=== PATIENT | female | born 1960 | race Caucasian/White ===

== ENCOUNTER 2019-08-02 12:00 | Emergency (ER) | payer SELFPAY ==
[2019-08-02 12:15] VITALS: BP 195/84
--- NOTE | 2019-08-02 12:31 | ER Document Report ---
HPI - HPI Time Seen by Provider: 08/02/19 12:23 Notes: 59-year-old female patient with history of hypertension presenting to the emergency department with request for blood pressure medication refill. Patient reports she has been out of her medications for approximately 4 days. She is hypertensive here in the emergency department today but denies any headache, chest pain or shortness of breath. She states she is in the process of getting set up with a primary care physician. Past Medical History - General Information source: Patient - Social History Smoking Status: Never Smoker Frequency of alcohol use: None Drug Abuse: None Family History: Reviewed & Not Pertinent - Past Medical History Cardiac Medical History: Reports: Hx Hypertension Vertical Provider Document - CONSTITUTIONAL Notes: PHYSICAL EXAMINATION: GENERAL: Well-appearing, well-nourished and in no acute distress. HEAD: Atraumatic, normocephalic. EYES: Pupils equal round extraocular movements intact, conjunctiva are normal. ENT: Nares patent NECK: Normal range of motion LUNGS: No respiratory distress Musculoskeletal: Normal range of motion NEUROLOGICAL: Normal speech, normal gait. PSYCH: Normal mood, normal affect. SKIN: Warm, Dry, normal turgor, no rashes or lesions noted. Course - Re-evaluation Re-evalutation: Medications refilled per request. Patient is hypertensive, she will go straight to the pharmacy obtain her medications and take her first dose. Patient given strict ED return precautions. Encourage patient to follow-up with primary care, information given for the [facility]. Patient verbalizes understanding and agreement with this plan. - Vital Signs Vital signs: Temp Pulse Resp BP Pulse Ox 97.7 F 69 16 195/84 H 97 08/02/19 12:11 08/02/19 12:11 08/02/19 12:11 08/02/19 12:11 08/02/19 12:11 Discharge - Discharge Clinical Impression: Encounter for medication refill Condition: Stable Disposition: HOME, SELF-CARE Additional Instructions: Please follow-up with the [facility] as discussed, call them to schedule an appointment. Return to the emergency department for any new or worsening symptoms. Prescriptions: Atorvastatin Calcium [Lipitor 20 mg Tablet] 20 mg PO QHS #30 tablet Amlodipine Besylate [Norvasc 5 mg Tablet] 5 mg PO Q12 #60 tablet Metoprolol Succinate [Toprol Xl 50 mg Tab.sr] 50 mg PO DAILY #30 tab.sr.24h
== END 2019-08-02 12:35 | disposition home or self-care (01) ==
LOC: ER 12:00
DX: Z76.0 Encounter for issue of repeat prescription (principal); I10 Essential (primary) hypertension
CPT/HCPCS: 99281